=== PATIENT | female | born 1995 | race Caucasian/White ===

== ENCOUNTER 2018-01-05 21:21 | Emergency (ER) | payer OTHER ==
[~2018-01-05] VITALS: Ht 170.2 cm; Wt 91.0 kg
[2018-01-05 21:30] VITALS: BP 160/70; PULSE 82; RESP 18; TEMP 99.1; O2SAT 100
[2018-01-05] MEDS ORDERED: diphenhydrAMINE HCL 50 MG/ML VIAL IV PUSH ONE (23:15)
[2018-01-05 23:33] VITALS: BP 142/91; PULSE 66; RESP 16; O2SAT 100
[2018-01-05 23:38] LABS: AUTOMATED NEUTROPHIL # 7.7 TH/MM3 (1.8-7.7); BASOPHIL # 0.1 TH/MM3 (0-0.2); BASOPHIL % 0.5 % (0.0-2.0); EOSINOPHIL % 0.1 % (0.0-4.0); HEMATOCRIT 42.1 % (35.0-46.0); HEMOGLOBIN 14.2 GM/DL (11.6-15.3); LYMPH % 23.4 % (9.0-44.0); LYMPHOCYTE # 2.6 TH/MM3 (1.0-4.8); MEAN CELL VOLUME 85.9 FL (80.0-100.0); MEAN CORPUSCULAR HGB CONC 33.7 % (32.0-36.0); MONO % 7.4 % (0.0-8.0); MONOCYTE # 0.8 TH/MM3 (0-0.9); NEUT % 68.6 % (16.0-70.0); PLATELET COUNT 323 TH/MM3 (150-450); WHITE BLOOD COUNT 11.2 TH/MM3 (4.0-11.0)
--- NOTE | 2018-01-05 23:41 | PD ---
HPI Chief Complaint: Allergic/Adverse Reaction Time Seen by Provider: 23:08 Travel History International Travel<30 days: No Contact w/Intl Traveler<30days: No Traveled to known affect area: No History of Present Illness HPI 22-year-old white female presents to emergency department stating that she thinks she is having allergic reaction to her medications. She states that she' s been sick with a sore throat, fever, general malaise over the past week. She was seen at the clinic at school on Wednesday and had a rapid strep throat test done which was negative. She went back on Wednesday and it was reported as negative. The patient was told that she may have mono. She was started on Keflex to cover for potential strep throat. She was given a shot of steroids and given a prescription for additional oral steroids. Since then she states that she's had tingling in her tongue, the sensation of swelling and more problems swallowing due to pain. She was also noticed some increased redness in her chest and on her face. The patient had taken one Benadryl by mouth without relief. She denies any specific rashes on the extremities, abdomen or back. She denies any shortness of breath or wheezing. No nausea vomiting. No abdominal pain or diarrhea. No urinary symptoms. She states that she's never had Keflex in the past. Positive history of mono in the past. [facility] Past Medical History Narrative Medical Gastritis, Mononucleosis Diminished Hearing: No Gastrointestinal Disorders: Yes (Gastritis) Neurologic: Yes (vasovegal ) Tetanus Vaccination: Unknown Influenza Vaccination: No ?: Not LMP: contol no periods Past Surgical History Surgical History: No Previous Surgery Social History Alcohol Use: Yes (occasionally) Tobacco Use: No Substance Use: No Allergies-Medications (Allergen,Severity, Reaction): Coded Allergies: Sulfa (Sulfonamide Antibiotics) (Verified Allergy, Severe, 01/05/18) tongue swelling Review of Systems General / Constitutional: Positive: Fever Eyes: No: Visual changes HENT: Positive: Sore Throat, Masses, Other (tongue swelling), No: Headaches, Earache Cardiovascular: No: Chest Pain or Discomfort Respiratory: No: Shortness of Breath Gastrointestinal: No: Nausea, Vomiting, Diarrhea, Abdominal Pain Genitourinary: No: Dysuria Musculoskeletal: No: Pain Skin: Positive Rash, Positive Itching Neurologic: No: Weakness Psychiatric: No: Depression Endocrine: No: Polydipsia Hematologic/Lymphatic: No: Easy Bruising Physical Exam Narrative GENERAL: Well-developed, well-nourished in no acute distress. Nontoxic appearing. Patient has normal phonation. HEAD: Normocephalic, atraumatic. EYES: Pupils equal round and reactive. Extraocular motions intact. No scleral icterus. No injection or drainage. ENT: TMs clear without erythema. The external auditory canals clear. Nose: clear . Posterior pharynx is erythematous with large tonsils with white exudate. Uvula midline. Airway patent. I do not see any glossal edema. Patient does have a few petechiae on the posterior pharynx. NECK: Trachea midline.Supple, nontender, moves head freely. No central bony tenderness or spasm. CARDIOVASCULAR: Regular rate and rhythm without murmurs, gallops, or rubs. RESPIRATORY: Clear to auscultation. Breath sounds equal bilaterally. No wheezes , rales, or rhonchi. GASTROINTESTINAL: Abdomen soft, non-tender, nondistended. No hepato-splenomegaly , or palpable masses. No guarding. EXTREMITIES: No clubbing, cyanosis, or edema. No joint tenderness, effusion, or edema noted. BACK: Nontender without deformity or crepitance. No flank tenderness. Skin: The patient has a slight increase in diffuse mild erythema in the face and anterior chest but no discrete rash. Data Data Last Documented VS Vital Signs Date Time Temp Pulse Resp B/P (MAP) Pulse Ox O2 Delivery O2 Flow Rate FiO2 01/05/18 23:33 66 16 142/91 (108) 100 Room Air 01/05/18 21:30 99.1 Orders Orders Complete Blood Count With Diff (01/05/18 23:14) Iv Access Insert/Monitor (01/05/18 23:14) Monoscreen (01/05/18 23:14) Diphenhydramine Inj (Benadryl Inj) (01/05/18 23:15) Ed Discharge Order (01/06/18 00:52) Labs Laboratory Tests Test 01/05/18 23:30 White Blood Count 11.2 TH/MM3 Red Blood Count 4.90 MIL/MM3 Hemoglobin 14.2 GM/DL Hematocrit 42.1 % Mean Corpuscular Volume 85.9 FL Mean Corpuscular Hemoglobin 29.0 PG Mean Corpuscular Hemoglobin Concent 33.7 % Red Cell Distribution Width 13.0 % Platelet Count 323 TH/MM3 Mean Platelet Volume 8.0 FL Neutrophils (%) (Auto) 68.6 % Lymphocytes (%) (Auto) 23.4 % Monocytes (%) (Auto) 7.4 % Eosinophils (%) (Auto) 0.1 % Basophils (%) (Auto) 0.5 % Neutrophils # (Auto) 7.7 TH/MM3 Lymphocytes # (Auto) 2.6 TH/MM3 Monocytes # (Auto) 0.8 TH/MM3 Eosinophils # (Auto) 0.0 TH/MM3 Basophils # (Auto) 0.1 TH/MM3 CBC Comment DIFF FINAL Differential Comment Monoscreen NEG [facility] Medical Decision Making Medical Screen Exam Complete: Yes Emergency Medical Condition: Yes Medical Record Reviewed: Yes Interpretation(s) Laboratory Tests Test 01/05/18 23:30 White Blood Count 11.2 TH/MM3 Red Blood Count 4.90 MIL/MM3 Hemoglobin 14.2 GM/DL Hematocrit 42.1 % Mean Corpuscular Volume 85.9 FL Mean Corpuscular Hemoglobin 29.0 PG Mean Corpuscular Hemoglobin Concent 33.7 % Red Cell Distribution Width 13.0 % Platelet Count 323 TH/MM3 Mean Platelet Volume 8.0 FL Neutrophils (%) (Auto) 68.6 % Lymphocytes (%) (Auto) 23.4 % Monocytes (%) (Auto) 7.4 % Eosinophils (%) (Auto) 0.1 % Basophils (%) (Auto) 0.5 % Neutrophils # (Auto) 7.7 TH/MM3 Lymphocytes # (Auto) 2.6 TH/MM3 Monocytes # (Auto) 0.8 TH/MM3 Eosinophils # (Auto) 0.0 TH/MM3 Basophils # (Auto) 0.1 TH/MM3 CBC Comment DIFF FINAL Differential Comment Monoscreen NEG Differential Diagnosis Differential diagnoses: Allergic reaction, strep throat, scarlet fever, mono, penicillin reaction secondary to mono Narrative Course IV access is obtained. Patient's given 50 g of Benadryl IV. CBC and mono have been ordered. Patient's CBC shows 11,000 white count. Her mono was negative. The patient has had no worsening symptoms. Her exam is unremarkable for obvious glossal edema or difficulty swallowing. Her lungs are clear. She is medically stable. She is advised to discontinue her Keflex. She can follow-up with the clinic at school or to the ER in the next few days for recheck. Diagnosis Primary Impression: viral pharyngitis Patient Instructions: General Instructions Departure Forms: School Release, Please excuse from school until (free text option): No school or work 2 days. Tests/Procedures Additional Instructions: Rest. Increase fluids. Stop Keflex. Continue prednisone. 50 mg of Benadryl every 6 hours for the next 2 days. Follow-up with a medical doctor or the ER in next 2-3 days for recheck. Return to the ER sooner if any problems. Med/Other Pt SpecificInfo: Med Stopped Disposition: 01 DISCHARGE HOME Condition: Stable Bassem Goff Jan 05, 2018 23:41
[2018-01-05 23:53] LABS: MONOSCREEN NEG (NEG)
== END 2018-01-06 01:01 | disposition home or self-care (01) ==
LOC: NEPD 21:21
DX: J02.8 Acute pharyngitis due to other specified organisms (principal); R53.81 Other malaise; R50.9 Fever, unspecified; R21 Rash and other nonspecific skin eruption; L29.9 Pruritus, unspecified; Z88.2 Allergy status to sulfonamides
CPT/HCPCS: 85025; 86308; 96374; 99284; J1200